=== PATIENT | female | born 1990 | race Caucasian/White ===

== ENCOUNTER 2016-12-12 11:37 | Emergency (ER) | payer MEDICAID ==
[~2016-12-12] VITALS: Ht 157.5 cm; Wt 54.5 kg
[~2016-12-12 11:37] MED LIST: METFORMIN500 MG PO; PEPCID 20MG TAB20 MG PO; PRENATAL1 TA1 PO; ULTRAM 50MG TAB50 MG PO; WOMEN'S DAILY1 TAB PO
[2016-12-12 11:39] VITALS: PULSE 87; TEMP 97.8
[2016-12-12] MEDS ORDERED: MIRENA52 MG IY (11:42)
[2016-12-12 12:46] LABS: PH 6 (5-8); SQUAMOUS EPITHELIAL 0-2 /hpf; URINE APPEARANCE Hazy; URINE BACTERIA None Seen /hpf; URINE BILIRUBIN Negative (NEGATIVE); URINE BLOOD 2+ (NEGATIVE); URINE COLOR Yellow; URINE GLUCOSE Negative (NEGATIVE); URINE KETONE Trace (NEGATIVE); URINE UROBILINOGEN >=4.0 mg/dL (NEGATIVE)
[2016-12-12 14:04] LABS: MEAN CELL VOLUME 83 fl (80.0-100.0); MEAN CORPUSCULAR HGB CONC 35 g/dl (33.0-37.0); PLATELET COUNT 188 K/mm3 (130-400); RED BLOOD COUNT 3.84 M/mm3 (4.10-5.30); REDCELL DISTRIBUTION WIDTH-CV 14.1 % (11.5-14.5); WHITE BLOOD COUNT 11.7 K/mm3 (4.8-10.8)
[2016-12-12 14:05] LABS: ADD PATHOLOGY DIFF REVIEW NO; HEMATOCRIT 31.9 % (37.0-47.0); MEAN CORPUSCULAR HEMOGLOBIN 29 pg (27.0-31.0)
[2016-12-12 14:21] LABS: ADJUSTED CALCIUM 9.1 mg/dL (8.4-10.2); ALBUMIN 3.4 gm/dL (3.5-5.0); BILIRUBIN,TOTAL 0.5 mg/dL (0.0-1.0); CALCIUM 8.6 mg/dL (8.4-10.2); CREATININE, serum 0.92 mg/dL (0.52-1.25); POTASSIUM 3.3 mmol/L (3.4-5.0)
[2016-12-12] MEDS ORDERED: NORCO 325 MG-51 TAB PO (14:22)
[2016-12-12] MEDS ORDERED: ZOFRAN ODT4 MG PO (14:22)
[2016-12-12 14:33] LABS: BAND 28 % (0-10); NEUTROPHILS 65 % (42.0-75.2); TOTAL CELLS COUNTED 100
[2016-12-12 14:34] LABS: DOHLE BODIES PRESENT; PLATELET ESTIMATE NORMAL (NORMAL); TOXIC GRANULATION PRESENT
[2016-12-12 14:50] VITALS: BP 114/94
== END 2016-12-12 14:52 | disposition home or self-care (01) ==
LOC: COL.ER 11:37
PROVIDERS: Emergency Medicine
DX: K80.20 Calculus of gallbladder without cholecystitis without obstruction (principal)
CPT/HCPCS: J2765; J3010; J7030

== ENCOUNTER 2017-01-10 19:46 | Emergency (ER) | payer MEDICAID ==
[~2017-01-10] VITALS: Ht 154.9 cm; Wt 50.0 kg
[~2017-01-10 19:46] MED LIST changes: +MIRENA52 MG IY; +NORCO 325 MG-51 TAB PO; +ZOFRAN ODT4 MG PO
[2017-01-10 19:49] VITALS: TEMP 97.8
[2017-01-10] MEDS ORDERED: ZOFRAN8 MG PO (20:13)
[2017-01-10] MEDS ORDERED: NORCO 325 MG-51 TAB PO (20:13)
[2017-01-10] MEDS ORDERED: ULTRAM 50MG TAB50 MG PO (20:13)
[2017-01-10 20:25] LABS: BASO % 0.6 % (0.0-2.0); EOS % 0.4 % (0-4.0); GRAN # 4.4 (1.4-6.5); HEMATOCRIT 36.1 % (37.0-47.0); LYMPH # 2.1 (1.2-3.4); LYMPH % 30.4 % (20.0-51.0); MEAN CELL VOLUME 84 fl (80.0-100.0); MEAN CORPUSCULAR HEMOGLOBIN 28 pg (27.0-31.0); MEAN CORPUSCULAR HGB CONC 33 g/dl (33.0-37.0); MEAN PLATELET VOLUME 8.4 fl (7.4-10.4); MONO # 0.5 (0.1-0.6); MONO % 6.5 % (1.7-9.3); PLATELET COUNT 279 K/mm3 (130-400); RED BLOOD COUNT 4.28 M/mm3 (4.10-5.30); REDCELL DISTRIBUTION WIDTH-CV 14.2 % (11.5-14.5)
[2017-01-10 20:35] LABS: ADJUSTED CALCIUM 9.1 mg/dL (8.4-10.2); ALBUMIN 4.2 gm/dL (3.5-5.0); BILIRUBIN,TOTAL 0.5 mg/dL (0.0-1.0); CALCIUM 9.3 mg/dL (8.4-10.2); CREATININE, serum 0.69 mg/dL (0.52-1.25); POTASSIUM 3.8 mmol/L (3.4-5.0); TOTAL PROTEIN 7.8 gm/dL (6.4-8.2)
[2017-01-10 21:18] VITALS: BP 158/94; PULSE 84
== END 2017-01-10 21:19 | disposition home or self-care (01) ==
LOC: COL.ER 19:46
PROVIDERS: Emergency Medicine
DX: R10.11 Right upper quadrant pain (principal); Z98.84 Bariatric surgery status; Z87.891 Personal history of nicotine dependence
CPT/HCPCS: J1170; J1885; J2405; J7030

== ENCOUNTER 2017-01-21 05:31 | Day surgery (SDC) | payer MEDICAID ==
[~2017-01-21] VITALS: Ht 157.5 cm; Wt 54.1 kg
[~2017-01-21 05:31] MED LIST changes: +ZOFRAN8 MG PO
[2017-01-21 06:00] VITALS: BP 121/90; PULSE 87; TEMP 98.9
[2017-01-21] MEDS ORDERED: NORCO 325 MG-51 TAB PO (09:32)
[2017-01-21] MEDS ORDERED: COLACE 100100 MG/CAP PO (09:32)
[2017-01-21] MEDS ORDERED: DOXYCYCLINE 10100 MG PO (09:33)
[2017-01-21 10:03] VITALS: BP 135/82; PULSE 85; TEMP 98.4
[2017-01-21 10:15] VITALS: BP 111/53; PULSE 74
[2017-01-21 10:30] VITALS: BP 130/84; PULSE 80
== END 2017-01-21 11:22 | disposition home or self-care (01) ==
LOC: SDCO 05:31
DX: K80.10 Calculus of gallbladder with chronic cholecystitis without obstruction (principal); I10 Essential (primary) hypertension; Z90.3 Acquired absence of stomach [part of]
CPT/HCPCS: J0690; J1100; J1885; J2405; J2704; J2710; J3010; J7120; Q9967

== ENCOUNTER 2018-08-04 14:41 | Emergency (ER) | payer SELFPAY ==
[~2018-08-04] VITALS: Ht 157.5 cm; Wt 62.3 kg
[~2018-08-04 14:41] MED LIST changes: +COLACE 100100 MG/CAP PO; +DOXYCYCLINE 10100 MG PO
[2018-08-04 14:47] VITALS: BP 179/84; TEMP 98.3
[2018-08-04] MEDS ORDERED: NORCO 325 MG-51 TAB PO (16:59)
[2018-08-04 17:07] VITALS: PULSE 74
== END 2018-08-04 17:35 | disposition home or self-care (01) ==
LOC: COL.ER 14:41
DX: S32.10XA Unspecified fracture of sacrum, initial encounter for closed fracture (principal); F12.90 Cannabis use, unspecified, uncomplicated; Z87.891 Personal history of nicotine dependence; W01.0XXA Fall on same level from slipping, tripping and stumbling without subsequent striking against object, initial encounter; Y92.410 Unspecified street and highway as the place of occurrence of the external cause